=== PATIENT | female | born 1960 | race Caucasian/White ===

== ENCOUNTER → 2021-08-18 | Outpatient (CLI) | payer MEDICARE ==
--- NOTE | 2021-08-18 12:01 | DIREP ---
PROCEDURE:MRI ABDOMEN W & W/O CONTRAST COMPARISON:None. 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 Images were obtained both before and after intravenous gadolinium infusion. FINDINGS: LIVER:Normal morphology. No significant steatosis. No focal liver lesion is seen. Hepatic vasculature is patent. BILIARY:Gallbladder images normally. No biliary ductal dilatation. PANCREAS:Normal. No focal lesion or ductal dilatation. No evidence of pancreas divisum. SPLEEN:Normal. No focal lesion or enlargement. KIDNEYS:Normal. No hydronephrosis or suspicious renal cortical lesion. ADRENALS:There is a 1.2 cm right adrenal nodule demonstrating signal drop on opposed phase imaging in keeping with a benign lipid rich adenoma. Unremarkable left adrenal. AORTA/VASCULAR:Normal. No aneurysm. RETROPERITONEUM:Normal. No mass or adenopathy. BOWEL/MESENTERY:Normal. No dilated loops of bowel or ascites. ABDOMINAL WALL:Normal. No mass or hernia. BONES:Lower lumbar fusion hardware noted. No suspicious marrow lesion is seen.. CONCLUSION: 1. There is a benign lipid rich right adrenal adenoma measuring 1.2 cm. 2. Postsurgical changes in the lower lumbar spine. Otherwise normal MRI of the abdomen. Dictated by: Leonardo Perez M.D. on 08/18/2021 at 11:51 AM
== END | disposition home or self-care (01) ==
LOC: RAD 09:57
PROVIDERS: ATTEND Internal Medicine
DX: D35.01 Benign neoplasm of right adrenal gland (principal); D44.11 Neoplasm of uncertain behavior of right adrenal gland
CPT/HCPCS: 74183; A9579

== ENCOUNTER → 2021-08-30 | Outpatient (CLI) | payer MEDICARE ==
--- NOTE | 2021-08-30 16:38 | DIREP ---
PROCEDURE:BONE DENSITY PERIPHERAL INDICATIONS:Z13.820 SCREENING FOR OSTEOPOROSIS COMPARISON:None. FINDINGS: SUMMARY Region BMD(g/cm^2) T-Score change from prior exam Left proximal femur0.867-1.2 Total hip left0.831-1.4 Right proximal femur0.900-1.0 Total hip right0.854-1.2 Proximal 1/3 right radius0.792-1.1 CONCLUSION:Osteopenia Major Osteoporotic 10 Year Fracture Risk = 21.5 % Hip Fracture 10 Year Risk = 1.0 % SUGGESTED RECOMMENDATIONS: Normal & Osteopenia:Consideration should be given to use of calcium supplementation, daily multiple vitamins and adequate exercise, as preventive measures against osteoporosis, if clinically indicated. Osteoporosis & Severe Osteoporosis:In addition to the above, consideration should be given to medical therapy against osteoporosis, if clinically indicated. Dictated by: Kolton Regalado DO on 08/30/2021 at 04:35 PM
--- NOTE | 2021-08-30 17:09 | DIREP ---
PROCEDURE:Digital Screening Mammogram TECHNIQUE:MLO and CC digital images of each breast are provided. Computer Assisted Detection (CAD) was utilized. COMPARISON:[facility], , MAMMO BILATERAL SCREENING WITH CAD, 02/28/2016, 10:42 AM. INDICATIONS:SCREENING BREAST COMPOSITION:Heterogeneously dense, which may obscure small masses. FINDINGS:There are no grouped microcalcifications, masses, or architectural distortions to suggest malignancy. There is no significant change as compared with the previous examination(s). IMPRESSION:No mammographic evidence of malignancy. RECOMMENDATIONS:Annual Screening Mammography per [employer] guidelines. OVERALL FINAL ASSESSMENT:BI-RADS 2 - Benign Mammogram Note: This facility participates in a mammography screening patient reminder system. Dictated by: Salazar Miller M.D. on 08/30/2021 at 04:47 PM
== END | disposition home or self-care (01) ==
LOC: RAD 14:08
PROVIDERS: ATTEND Internal Medicine
DX: Z12.31 Encounter for screening mammogram for malignant neoplasm of breast (principal); Z13.820 Encounter for screening for osteoporosis; M81.8 Other osteoporosis without current pathological fracture
CPT/HCPCS: 77067; 77080

== ENCOUNTER → 2021-10-04 | Outpatient (CLI) | payer MEDICARE ==
[~2021-10-04] MED LIST: AMPH15TA PO; CLON0.1T PO; ESTR0.5T PO; ESTR50GE TP; FLUO20CA19 PO; GABA300C PO; MELO15TA24 PO; MONT10TA6 PO; RISE150T3 PO; TIZA-113 PO
--- NOTE | 2021-10-04 14:37 | DIREP ---
PROCEDURE:US ABDOMEN LIMITED (SINGLE ORGAN - QUAD) COMPARISON:[facility], MR, MRI ABDOMEN W & W/O CONTRAST, 08/18/2021, 10:16 AM. INDICATIONS:R10.11 RUQ PAIN, R11.0 NAUSEA TECHNIQUE:High resolution sonographic examination was performed of the abdomen. FINDINGS: PANCREAS:Visualized portions of the pancreatic head and body appear unremarkable. The pancreatic tail is obscured by bowel gas shadowing. LIVER:Normal hepatic parenchymal architecture. No focal hepatic lesion is identified. Hepatopetal flow in the portal vein. GALLBLADDER:A minimal amount of sludge is present within the dependent portion of the gallbladder. No evidence for gallbladder wall thickening or pericholecystic fluid. A sonographic Michaels's sign was not elicited. BILIARY:There is no biliary ductal dilatation. RIGHT KIDNEY:Within normal limit. No hydronephrosis. OTHER:Negative. No ascites is identified. CBD:0.3 cm GALLBLADDER WALL: 0.2 cm RIGHT KIDNEY: 9.4 x 4.3 x 5.4 cm CONCLUSION: 1. Hepatic parenchymal echotexture within normal limits. No focal lesion identified. 2. Small volume gallbladder sludge without evidence of wall thickening or pericholecystic fluid. Dictated by: RODNEY Physician on 10/04/2021 at 12:12 PM
== END | disposition home or self-care (01) ==
LOC: RAD 07:55
PROVIDERS: ATTEND Surgery
DX: R10.11 Right upper quadrant pain (principal); R11.0 Nausea
CPT/HCPCS: 76705

== ENCOUNTER 2021-10-10 07:00 | Day surgery (SDC) | payer MEDICARE ==
[2021-10-04 09:32] VITALS: BP 130/88
[2021-10-04 09:58] LABS: BASOPHIL # 0.1 10^3/uL (0.0-0.1); BASOPHIL % 0.9 % (0.0-0.2); EOSINOPHIL # 0.2 10^3/uL (0.0-0.2); EOSINOPHIL % 2.8 % (0.0-5.0); LYMPHOCYTES # 2.02 10^3/uL1 (1.0-4.8); MEAN CORP HGB 30.7 pg (26-34); MONOCYTES # 0.5 10^3/uL (0.3-0.8); MONOCYTES % 6.6 % (5.0-12.0); NEUTROPHILS % 63.7 % (41.0-85.0); PLATELET COUNT 236 10^3/uL (150-400); RED CELL DISTRIBUTION WIDTH 12.6 % (11.5-14.5)
[2021-10-04 10:14] LABS: CARBON DIOXIDE 27.6 mmol/L (20.0-32)
[~2021-10-10] VITALS: Ht 175.3 cm; Wt 54.4 kg
[2021-10-10 06:50] VITALS: BP 114/100
[~2021-10-10 07:00] MED LIST changes: +ANCEF 1 GM in NS 100ML 100 ML IV ONE; +ANCEF ONE; +LACTATED RINGERS 1,000 ML IV SCH; +LACTATED RINGERS 1,000 ML ONE; +NS 100ML 100 ML IV ONE; +SUPREP BOWEL PREP KIT PO ONE
[2021-10-10] MEDS ORDERED: WATER ONE (07:17)
[2021-10-10] MEDS ORDERED: LIDOCAINE 1% VIAL ONE (09:21)
[2021-10-10] MEDS ORDERED: VERSED ONE (09:21)
[2021-10-10] MEDS ORDERED: DIPRIVAN IV ONE ×2 (09:21→10:35)
[2021-10-10] MEDS ORDERED: SUBLIMAZE ONE (09:22)
[2021-10-10 10:21] VITALS: BP 117/67
[2021-10-10 10:35] VITALS: BP 150/89
--- NOTE | 2021-10-10 10:42 | PRM.OPH ---
OPERATIVE REPORT OPERATIVE REPORT Indications: Patient with a history of GERD, and a positive Cologuard Preoperative diagnosis: GERD, screening colonoscopy for positive Cologuard Postoperative diagnosis: Stigmata in the fundus, gastritis in the antrum, evidence of reflux disease with an irregular GE junction, 7 polyps in the rectal vault, Hemorrhoids Procedure: EGD with biopsy, colonoscopy with biopsy Surgeon: Janet Oconnell MD Anesthesia: Perry Murguia CRNA, Specimen: Biopsies were taken from the antrum for gastritis, the fundus near an area of stigmata, a polyp in the fundus was removed with polypectomy and cold forceps, biopsies were taken at the GE junction x4 quadrants.On the colonoscopy, 7 polyps were noted in the rectal vault, and these were removed with cold biopsy polypectomy. EBL: Trace of biopsy sites Complications:None Technique of procedure: Once the consent of been reviewed and given, the patient was taken to the operating room on the [facility]. She was placed in left lateral decubitus position. A bite block was placed without difficulty. Supplemental oxygen and anesthesia were given until the patient was properly sedated. The lubricated EGD scope was carefully passed through the The esophagus and stomach, to the small bowel. The small bowel appeared to be normal. The stomach appeared to have some gastritis in the area of the antrum. This was biopsied. A biopsy was also taken from the incisura for H. pylori. The fundus appeared fairly normal, other than a polyp that was noted, and removed with cold forceps polypectomy. There was also some stigmata in the fundus, this area was biopsied. The GE junction was biopsied x4 quadrants, and showed irregularity that was due to reflux. The scope was withdrawn on suction. The bed was rotated in the room, and a rectal exam was performed. A polyp was noted as well as hemorrhoids. The lubricated colonoscope was gently placed into the rectum and advanced to the hepatic flexure without difficulty. The patient had a somewhat redundant colon, and this did involve some external manual pressure, but I was able to advance to the cecum. The scope was then slowly withdrawn, being careful to examine all the mucosa on the way. No significant abnormalities were noted until the rectal vault was reached. 7 polyps were noted in the rectal vault. They were all removed with cold forceps polypectomy. There were sent in several different jars. The patient also had hemorrhoids on retroflexion. Patient appeared to tolerate the procedure well. All counts were correct at the end of the procedure JANET OCONNELL MD Oct 10, 2021 10:42
[2021-10-10 10:50] VITALS: BP 143/93
[2021-10-10] MEDS ORDERED: NS 500ML 500 ML IV ONE (11:00)
== END 2021-10-10 11:00 | disposition home or self-care (01) ==
LOC: SDC 07:00
PROVIDERS: ATTEND Surgery
DX: R19.5 Other fecal abnormalities (principal); K62.1 Rectal polyp; K21.9 Gastro-esophageal reflux disease without esophagitis; K64.9 Unspecified hemorrhoids; K63.89 Other specified diseases of intestine; K29.70 Gastritis, unspecified, without bleeding; F41.9 Anxiety disorder, unspecified; F32.A Depression, unspecified; J45.909 Unspecified asthma, uncomplicated; Z79.899 Other long term (current) drug therapy; Z79.01 Long term (current) use of anticoagulants; Z90.710 Acquired absence of both cervix and uterus; Z98.1 Arthrodesis status; Z98.891 History of uterine scar from previous surgery; Z87.891 Personal history of nicotine dependence
CPT/HCPCS: 36415; 43239; 45380; 80053; 85025; 85610; 85730; 88305; J0690 ×2; J2001; J2250; J3010; J3490 ×2; J7120; J7040

== ENCOUNTER → 2022-04-20 | Outpatient (CLI) | payer MEDICARE ==
[~2022-04-20] MED LIST changes: -ANCEF 1 GM in NS 100ML 100 ML IV ONE; -ANCEF ONE; -LACTATED RINGERS 1,000 ML IV SCH; -LACTATED RINGERS 1,000 ML ONE; -NS 100ML 100 ML IV ONE; -SUPREP BOWEL PREP KIT PO ONE
--- NOTE | 2022-04-20 11:11 | DIREP ---
PROCEDURE:CT CHEST WITH CONTRAST COMPARISON:None. INDICATIONS:RIGHT LUNG MASS UPPER AND MIDDLE LOBE, ABNORMAL CXR TECHNIQUE:Helical sections through the chest were performed from the lung apices through the diaphragms with IV contrast. Sagittal and coronal reconstructions are obtained from source images. FINDINGS: LUNGS:Volume loss is seen in the right lung with shift of the heart and mediastinum to the right. A large mass or masslike density with consolidation and atelectasis is seen in the right lung involving the right upper lobe, right middle lobe and right lower lobe with indiscrete margins or borders with extensive infiltrates peripherally in the right upper lobe and right lower lobe. Centrilobular emphysematous changes are seen in the lungs bilaterally. Reticular nodular interstitial changes are noted in the left upper lobe. PLEURA:Normal. No mass or effusion. CARDIAC:No enlargement, pericardial thickening, or significant calcification. MEDIASTINUM:The mediastinum is shifted to the right. 1.6 cm x 9 mm pretracheal lymph node is seen. SELWYN:Normal. No mass or adenopathy. AORTA:Normal. No aneurysm. CHEST WALL:Normal. No mass or axillary adenopathy. LIMITED ABDOMEN:Normal. Limited images of the upper abdomen are unremarkable. BONES:Mild degenerative changes are seen in the lumbar spine. Orthopedic hardware is partially visualized in the lower lumbar spine. OTHER:Negative. CONCLUSION:Findings of volume loss in the right lung with a large mass or masslike density highly suspicious for malignancy extending from the right hilum into the right upper lobe, right middle lobe and right lower lobe with ill-defined borders or margins secondary to consolidation and atelectasis with extensive infiltrates and/or postobstructive pneumonia in the right upper lobe and right lower lobe. Mild reticular nodular interstitial changes are seen in the left upper lobe. The findings are superimposed on emphysematous changes. Dictated by: Roger Bignham M.D. on 04/20/2022 at 10:56 AM
== END | disposition home or self-care (01) ==
LOC: RAD 08:19
PROVIDERS: ATTEND Nurse Practitioner Family
DX: J43.2 Centrilobular emphysema (principal); R91.8 Other nonspecific abnormal finding of lung field; J43.9 Emphysema, unspecified; M47.816 Spondylosis without myelopathy or radiculopathy, lumbar region
CPT/HCPCS: 71260; 36415; 82565; Q9965